=== PATIENT | female | born 1985 | race Caucasian/White ===

== ENCOUNTER 2016-10-31 02:44 | Emergency (ER) | payer SELFPAY ==
[~2016-10-31] VITALS: Ht 162.6 cm; Wt 72.6 kg
--- NOTE | 2016-10-31 02:49 | NUR ---
Placed in room 08 . Placed on gambling monitor, blood pressure machine and pulse oximeter. To gown for exam. Side rails up. Report given to PAGE Curry.
[2016-10-31 02:50] VITALS: BP_SYST 152
--- NOTE | 2016-10-31 02:50 | NUR ---
Patient AAO x4, sitting in bed, c/o Nausea and vomiting, FRIEDMAN 2/10, and anxiety following the ingestion of 9905-5002 mg of Depakote and 2500 mg of Keppra. Patient denies SI, states she took medication 24 hrs ago and is feeling unwell, states "I dont know how I took too much." No acute distress noted. Will continue to monitor.
--- NOTE | 2016-10-31 02:53 | NUR ---
Called Poison Control at [phone] and spoke with Don. Per recommendations: CMP, Depakote and Ammonia levels now and in 3 hrs, Tylenol and ASA levels, UDS. Dr. Lambert notified. Will continue to monitor patient.
--- NOTE | 2016-10-31 03:00 | NUR ---
ER at bedside examining patient.
[2016-10-31] MEDS ORDERED: NACL 0.9% 1,000 ML IV ONE (03:03)
[2016-10-31] MEDS ORDERED: ONDANSETRON HCL 4 MG/2 ML VIAL IVP ONE (03:15)
[2016-10-31 03:37] LABS: WHITE BLOOD COUNT (AUTO) 6.7 K/uL (4.8-10.8)
[2016-10-31 03:38] LABS: HEMATOCRIT 44.3 % (36-48); HEMOGLOBIN 14.6 g/dL (12.0-16.0); MEAN CORPUSCULAR HEMOGLOBIN 29 pg (27-31); MEAN CORPUSCULAR HGB CONC 33 % (32-36); MEAN CORPUSCULAR VOLUME 88 fL (79.0-98.0); NEUTROPHILS % (AUTO) 49.9 % (40.0-70.0); PLATELET COUNT (AUTO) 284 K/uL (130-430); RED BLOOD CELL COUNT(AUTO) 5.02 MIL/uL (4.2-6.2); RED CELL DISTRIBUTION WIDTH 13.4 % (9.0-15.0)
[2016-10-31 03:39] LABS: ANION GAP 3 (5-15); BASOPHILS % (AUTO) 0.5 % (0.0-2.0); CHLORIDE 104 mmol/L (98-107); CREATININE 0.81 mg/dL (0.55-1.30); EOSINOPHILS # (AUTO) 0.2 K/uL (0.0-0.4); EOSINOPHILS % (AUTO) 3.6 % (0.0-4.0); GLUCOSE 80 mg/dL (70-99); LYMPHOCYTES # (AUTO) 2.2 K/uL (1.0-5.5); LYMPHOCYTES % (AUTO) 33.3 % (20.5-51.5); MONOCYTES # (AUTO) 0.9 K/uL (0.0-1.0); MONOCYTES % (AUTO) 12.7 % (1.7-9.3); NEUTROPHILS # (AUTO) 3.4 K/uL (1.8-7.7); SODIUM SERUM 137 mmol/L (136-145); UREA NITROGEN, BLOOD 11 mg/dL (8-21)
--- NOTE | 2016-10-31 03:40 | NUR ---
# 20 gauge angiocath placed to R AC. Use of asceptic technique. Opsite placed over site. Blood return noted. Flushed with 10 cc of normal saline. No evidence of infiltration noted. Patient tolerated well.
[2016-10-31 03:41] LABS: GFR AFRICAN AMERICAN 108 mL/min (>90)
[2016-10-31 03:43] LABS: ALANINE AMINOTRANSFERASE 14 U/L (12-78); ALBUMIN 4.5 g/dL (3.4-4.8); AMYLASE 45 U/L (0-100); ASPARTATE AMINOTRANSFERASE 10 U/L (10-37); CREATINE KINASE, TOTAL 50 U/L (26-192); LIPASE 97 U/L (73-393); SALICYLATE 1 mg/dL (3-30); TOTAL BILIRUBIN 0.3 mg/dL (0.0-1.0); TOTAL PROTEIN, SERUM 7.6 g/dL (6.4-8.3)
[2016-10-31 03:45] LABS: ACETAMINOPHEN < 1 ug/mL (1-30); ALCOHOL, BLOOD < 3 mg/dL (<10)
[2016-10-31 03:52] LABS: PROTHROMBIN TIME 11.3 SECS (9.5-12.5)
[2016-10-31 04:41] LABS: BILIRUBIN,URINE NEGATIVE (NEGATIVE); BLOOD, URINE 1+ (NEGATIVE); CLARITY/URINE CLEAR (CLEAR); COLOR,URINE YELLOW (YELLOW); GLUCOSE,URINE NEGATIVE (NEGATIVE); KETONES,URINE NEGATIVE (NEGATIVE); LEUKOCYTE ESTERASE ,URINE NEGATIVE (NEGATIVE); NITRITE, URINE NEGATIVE (NEGATIVE); PROTEIN URINE NEGATIVE (NEGATIVE); UROBILINOGEN,URINE 0.2 (0.2-1.0)
--- NOTE | 2016-10-31 04:45 | NUR ---
Patient resting quietly. No acute distress noted. Vital signs within normal range.
[2016-10-31 04:53] LABS: BARBITURATE, URINE NEGATIVE (NEG <=200); BENZODIAZEPINE, URINE NEGATIVE (NEG <=150); CANNABINOID, URINE NEGATIVE (NEG <=50); COCAINE, URINE NEGATIVE (NEG <=150); METHAMPHETAMINES SCREEN,URINE NEGATIVE (NEG <=500); OPIATE, URINE NEGATIVE (NEG <=100); PHENCYCLIDINE SCREEN,URINE NEGATIVE (NEG <=25); UR TRICYCLIC ANTIDEPRESSANTS NEGATIVE (NEG <=300); URINE AMPHETAMINE NEGATIVE (NEG <=500); URINE METHADONE NEGATIVE (NEG <=200); URINE OXYCODONE SCREEN NEGATIVE (NEG <=100); URINE PROPOXYPHENE SCREEN NEGATIVE (NEG <=300)
[2016-10-31 04:56] LABS: RBC,URINE 0-3 /HPF (0-3)
[2016-10-31 04:57] LABS: BACTERIA,URINE FEW /HPF (None Seen); MUCUS,URINE None Seen /LPF (None Seen); WBC,URINE NONE SEEN /HPF (0-3)
[2016-10-31] MEDS ORDERED: ACETAMINOPHEN 325 MG TABLET PO ONE (05:30)
[2016-10-31 05:55] VITALS: BP_SYST 120
--- NOTE | 2016-10-31 05:55 | NUR ---
Patient given written and verbal discharge instructions and verbalizes understanding. ER MD discussed with patient the results and treatment provided. Patient in stable condition. ID arm band removed. IV catheter removed intact and dressing applied, no active bleeding. Rx of zofran given. Patient educated on pain management and to follow up with PMD. Pain Scale 0/10 . Opportunity for questions provided and answered.
== END 2016-10-31 05:55 | disposition home or self-care (01) ==
LOC: SED 02:44
DX: T42.6X1A Poisoning by other antiepileptic and sedative-hypnotic drugs, accidental (unintentional), initial encounter (principal); G40.909 Epilepsy, unspecified, not intractable, without status epilepticus; R11.2 Nausea with vomiting, unspecified; F43.10 Post-traumatic stress disorder, unspecified; Z91.018 Allergy to other foods; Y92.89 Other specified places as the place of occurrence of the external cause
CPT/HCPCS: 36415; 80053; 80307; 81000; 81025; 82150; 82542; 82550; 83690; 85025; 85610; 85730; 93005; 96361; 96374; 99285; G0480; G0481; G0482; J2405; J7030

== ENCOUNTER 2016-11-02 06:33 | Emergency (ER) | payer SELFPAY ==
[~2016-11-02] VITALS: Ht 162.6 cm; Wt 65.8 kg
[2016-11-02 06:43] VITALS: BP_SYST 149
[2016-11-02 07:09] LABS: BILIRUBIN,URINE NEGATIVE (NEGATIVE); CLARITY/URINE CLEAR (CLEAR); COLOR,URINE YELLOW (YELLOW); GLUCOSE,URINE NEGATIVE (NEGATIVE); KETONES,URINE NEGATIVE (NEGATIVE); LEUKOCYTE ESTERASE ,URINE NEGATIVE (NEGATIVE); NITRITE, URINE NEGATIVE (NEGATIVE); PROTEIN URINE NEGATIVE (NEGATIVE); UROBILINOGEN,URINE 0.2 (0.2-1.0)
[2016-11-02 07:10] LABS: BLOOD, URINE TRACE (NEGATIVE)
[2016-11-02 07:13] LABS: BARBITURATE, URINE NEGATIVE (NEG <=200); BENZODIAZEPINE, URINE NEGATIVE (NEG <=150); CANNABINOID, URINE NEGATIVE (NEG <=50); COCAINE, URINE NEGATIVE (NEG <=150); METHAMPHETAMINES SCREEN,URINE NEGATIVE (NEG <=500); OPIATE, URINE NEGATIVE (NEG <=100); PHENCYCLIDINE SCREEN,URINE NEGATIVE (NEG <=25); UR TRICYCLIC ANTIDEPRESSANTS NEGATIVE (NEG <=300); URINE AMPHETAMINE NEGATIVE (NEG <=500); URINE METHADONE NEGATIVE (NEG <=200); URINE OXYCODONE SCREEN NEGATIVE (NEG <=100); URINE PROPOXYPHENE SCREEN NEGATIVE (NEG <=300)
[2016-11-02] MEDS ORDERED: LORazepam 2 MG/ML VIAL (FOR ER USE) IVP ONE (07:15)
[2016-11-02] MEDS ORDERED: LORazepam 2 MG/ML VIAL (FOR ER USE) IM ONE (07:15)
[2016-11-02 07:17] LABS: BACTERIA,URINE None Seen /HPF (None Seen); RBC,URINE 0-3 /HPF (0-3); WBC,URINE 0-3 /HPF (0-3)
[2016-11-02 09:19] VITALS: BP_SYST 106
== END 2016-11-02 09:21 | disposition home or self-care (01) ==
LOC: SED 06:33
DX: F41.9 Anxiety disorder, unspecified (principal); F43.10 Post-traumatic stress disorder, unspecified; Z91.018 Allergy to other foods
CPT/HCPCS: 80307; 81000; 81025; 96374; 99284; J2060

== ENCOUNTER 2017-01-03 13:07 | Emergency (ER) | payer MEDICAID ==
[~2017-01-03] VITALS: Ht 160 cm; Wt 74.8 kg
[2017-01-03 13:23] VITALS: BP_SYST 121
[2017-01-03 14:28] VITALS: BP_SYST 121
== END 2017-01-03 14:28 | disposition home or self-care (01) ==
LOC: SED 13:07
DX: Z32.02 Encounter for pregnancy test, result negative (principal); R10.30 Lower abdominal pain, unspecified; F43.10 Post-traumatic stress disorder, unspecified
CPT/HCPCS: 36415; 84702-TC; 99283

== ENCOUNTER 2017-05-19 10:27 | Emergency (ER) | payer MEDICAID ==
[~2017-05-19] VITALS: Ht 162.6 cm; Wt 77.1 kg
[2017-05-19 10:30] VITALS: BP_SYST 123
--- NOTE | 2017-05-19 10:36 | NUR ---
Patient triaged and placed in waiting room. VSS and patient appears in no acute distress at this time. Accompanied by SELF, awaiting available bed, and MD notified of need for MSE.
--- NOTE | 2017-05-19 11:26 | NUR ---
Patient to ER bed 4 to gown for evaluation. Side rails up. Report given to Ford ABEL.
--- NOTE | 2017-05-19 11:45 | NUR ---
31year old female presented to ED with complaints of flu like symptoms x 10days; reports she is approximately 7weeks gestation; c/o 01/22 pain to groin area; awaiting for MD assess/eval
--- NOTE | 2017-05-19 11:48 | NUR ---
Dr. Lambert at bedside for assess/eval
--- NOTE | 2017-05-19 11:57 | NUR ---
urine sample collected and sent to lab
[2017-05-19] MEDS ORDERED: ALBUTEROL SULFATE 0.083% 2.5 MG/3 ML VIAL.NEB IH ONE (12:00)
[2017-05-19] MEDS ORDERED: IPRATROPIUM BROM 0.5 MG/2.5 ML VIAL.NEB (ATROVENT) IH ONE (12:00)
[2017-05-19 12:20] LABS: BASOPHILS # (AUTO) 0.1 K/uL (0.0-0.2); BASOPHILS % (AUTO) 0.7 % (0.0-2.0); EOSINOPHILS # (AUTO) 0.4 K/uL (0.0-0.4); EOSINOPHILS % (AUTO) 4.6 % (0.0-4.0); HEMATOCRIT 42.5 % (36-48); HEMOGLOBIN 14.1 g/dL (12.0-16.0); LYMPHOCYTES # (AUTO) 1.6 K/uL (1.0-5.5); LYMPHOCYTES % (AUTO) 18.6 % (20.5-51.5); MEAN CORPUSCULAR HEMOGLOBIN 29 pg (27-31); MEAN CORPUSCULAR HGB CONC 33 % (32-36); MEAN CORPUSCULAR VOLUME 87 fL (79.0-98.0); MONOCYTES # (AUTO) 0.6 K/uL (0.0-1.0); MONOCYTES % (AUTO) 6.5 % (1.7-9.3); NEUTROPHILS # (AUTO) 5.9 K/uL (1.8-7.7); NEUTROPHILS % (AUTO) 69.6 % (40.0-70.0); PLATELET COUNT (AUTO) 394 K/uL (130-430); RED BLOOD CELL COUNT(AUTO) 4.89 MIL/uL (4.2-6.2); RED CELL DISTRIBUTION WIDTH 12.9 % (9.0-15.0); WHITE BLOOD COUNT (AUTO) 8.6 K/uL (4.8-10.8)
[2017-05-19 12:26] LABS: CALCIUM 9.6 mg/dL (8.4-11.0); CREATININE 0.61 mg/dL (0.55-1.30)
[2017-05-19 12:33] LABS: BILIRUBIN,URINE NEGATIVE (NEGATIVE); CLARITY/URINE SLIGHTLY HAZY (CLEAR); COLOR,URINE YELLOW (YELLOW); GLUCOSE,URINE NEGATIVE (NEGATIVE); KETONES,URINE TRACE (NEGATIVE); PROTEIN URINE NEGATIVE (NEGATIVE)
[2017-05-19 12:34] LABS: ALBUMIN 4.3 g/dL (3.4-4.8); TOTAL BILIRUBIN 0.2 mg/dL (0.0-1.0)
[2017-05-19 12:34] LABS: BLOOD, URINE NEGATIVE (NEGATIVE); LEUKOCYTE ESTERASE ,URINE NEGATIVE (NEGATIVE); NITRITE, URINE NEGATIVE (NEGATIVE); UROBILINOGEN,URINE 0.2 (0.2-1.0)
--- NOTE | 2017-05-19 13:03 | NUR ---
rcv report from PAGE Youngblood; pt resting comfortably in bed; request PO food but states continues with nausea; will make MD aware
[2017-05-19] MEDS ORDERED: ACETAMINOPHEN 325 MG TABLET PO ONE (14:00)
[2017-05-19 14:10] VITALS: BP_SYST 132
--- NOTE | 2017-05-19 14:14 | NUR ---
Patient given written and verbal discharge instructions and verbalizes understanding. ER MD discussed with patient the results and treatment provided. Patient in stable condition. ID arm band removed. Rx of Afrin, Tylenol, and Zofran given. Patient educated on pain management and to follow up with PMD within 2 to 3days. Pain Scale 5/10; tolerable and no other interventions required at this time; pt and MD agreeable to discharge home. Opportunity for questions provided and answered.
== END 2017-05-19 14:14 | disposition home or self-care (01) ==
LOC: SED 10:27
DX: O98.511 Other viral diseases complicating pregnancy, first trimester (principal); O21.0 Mild hyperemesis gravidarum; J00 Acute nasopharyngitis [common cold]; B34.9 Viral infection, unspecified; F43.10 Post-traumatic stress disorder, unspecified; Z3A.01 Less than 8 weeks gestation of pregnancy; Z88.8 Allergy status to other drugs, medicaments and biological substances; Z91.018 Allergy to other foods
CPT/HCPCS: 36415; 80053; 81003; 85025; 86710; 94640; 99284

== ENCOUNTER 2017-06-07 17:16 | Emergency (ER) | payer MEDICAID ==
[~2017-06-07] VITALS: Ht 162.6 cm; Wt 77.1 kg
--- NOTE | 2017-06-07 17:30 | NUR ---
Pt placed in bed 8
--- NOTE | 2017-06-07 17:30 | NUR ---
Pt signed consent for x-ray examination during . Dr. Landon at bedside to inform pt of medical benefits and risks.
--- NOTE | 2017-06-07 17:36 | NUR ---
Dr. Landon at bedside for evaluation
[2017-06-07 17:40] VITALS: BP_SYST 127
[2017-06-07] MEDS ORDERED: NACL 0.9% 1,000 ML IV SCH (17:42)
[2017-06-07] MEDS ORDERED: ACETAMINOPHEN 325 MG TABLET PO ONE (17:45)
[2017-06-07] MEDS ORDERED: cefTRIAXone 1 GM IVPB PREMIX 50 ML IV ONE (17:45)
--- NOTE | 2017-06-07 17:50 | NUR ---
# 20 gauge angiocath placed to LAC. Use of asceptic technique. Opsite placed over site. Blood return noted. Blood for lab drawn from site. Flushed with 10 cc of normal saline. No evidence of infiltration noted. Patient tolerated well.
[2017-06-07 18:17] LABS: BASOPHILS % (AUTO) 0.7 % (0.0-2.0); EOSINOPHILS # (AUTO) 0.2 K/uL (0.0-0.4); EOSINOPHILS % (AUTO) 2.2 % (0.0-4.0); HEMATOCRIT 39.5 % (36-48); LYMPHOCYTES # (AUTO) 0.8 K/uL (1.0-5.5); LYMPHOCYTES % (AUTO) 12.2 % (20.5-51.5); MEAN CORPUSCULAR HEMOGLOBIN 29 pg (27-31); MEAN CORPUSCULAR HGB CONC 33 % (32-36); MEAN CORPUSCULAR VOLUME 88 fL (79.0-98.0); MONOCYTES # (AUTO) 0.7 K/uL (0.0-1.0); MONOCYTES % (AUTO) 9.9 % (1.7-9.3); NEUTROPHILS # (AUTO) 5.2 K/uL (1.8-7.7); PLATELET COUNT (AUTO) 279 K/uL (130-430); RED BLOOD CELL COUNT(AUTO) 4.51 MIL/uL (4.2-6.2); RED CELL DISTRIBUTION WIDTH 13.4 % (9.0-15.0); WHITE BLOOD COUNT (AUTO) 6.9 K/uL (4.8-10.8)
[2017-06-07 18:27] LABS: CALCIUM 9.1 mg/dL (8.4-11.0); CREATININE 0.61 mg/dL (0.55-1.30); POTASSIUM 3.4 mmol/L (3.5-5.1)
[2017-06-07 18:29] LABS: PROTHROMBIN TIME 9.9 SECS (9.5-12.5)
[2017-06-07 18:31] LABS: ALBUMIN 3.5 g/dL (3.4-4.8); TOTAL BILIRUBIN 0.2 mg/dL (0.0-1.0)
[2017-06-07] MEDS ORDERED: OSELTAMIVIR PHOSPHATE 75 MG CAPSULE PO ONE (18:45)
[2017-06-07 19:30] VITALS: BP_SYST 127
--- NOTE | 2017-06-07 19:30 | NUR ---
Patient given written and verbal discharge instructions and verbalizes understanding. ER MD discussed with patient the results and treatment provided. Patient in stable condition. ID arm band removed. IV catheter removed intact and dressing applied, no active bleeding. Rx of Diclegis, Tylenol, and Tamiflu given. Patient educated on pain management and to follow up with PMD. Pain Scale 2/10. Opportunity for questions provided and answered. Medication side effect fact sheet provided.
== END 2017-06-07 19:30 | disposition home or self-care (01) ==
LOC: SED 17:16
DX: O26.891 Other specified pregnancy related conditions, first trimester (principal); J11.1 Influenza due to unidentified influenza virus with other respiratory manifestations; F43.10 Post-traumatic stress disorder, unspecified; Z3A.10 10 weeks gestation of pregnancy; Z91.018 Allergy to other foods; Z91.048 Other nonmedicinal substance allergy status
CPT/HCPCS: 36415; 71045; 80053; 83605; 83690; 84484; 85025; 85610; 85730; 86710; 87040; 93005; 96365; 99285; G9035; J0696; J7030

== ENCOUNTER 2017-06-10 13:48 | Emergency (ER) | payer MEDICAID ==
[~2017-06-10] VITALS: Ht 162.6 cm; Wt 77.1 kg
[2017-06-10 13:48] VITALS: BP_SYST 144
[2017-06-10] MEDS ORDERED: ONDANSETRON 4 MG ODT TAB PO ONE (14:15)
[2017-06-10 14:42] LABS: BILIRUBIN,URINE NEGATIVE (NEGATIVE); BLOOD, URINE NEGATIVE (NEGATIVE); CLARITY/URINE CLOUDY (CLEAR); COLOR,URINE YELLOW (YELLOW); GLUCOSE,URINE NEGATIVE (NEGATIVE); KETONES,URINE NEGATIVE (NEGATIVE); LEUKOCYTE ESTERASE ,URINE NEGATIVE (NEGATIVE); NITRITE, URINE NEGATIVE (NEGATIVE); PH,URINE 6.5 (5.0-8.0); PROTEIN URINE 1+ (NEGATIVE); UROBILINOGEN,URINE 0.2 (0.2-1.0)
[2017-06-10 14:54] LABS: BACTERIA,URINE FEW /HPF (None Seen); RBC,URINE 0-3 /HPF (0-3); WBC,URINE 0-3 /HPF (0-3)
[2017-06-10] MEDS ORDERED: ONDANSETRON 4 MG ODT TAB ONE (16:49)
[2017-06-10 17:25] VITALS: BP_SYST 115
== END 2017-06-10 18:00 | disposition home or self-care (01) ==
LOC: SED 13:48
DX: O21.9 Vomiting of pregnancy, unspecified (principal); J11.1 Influenza due to unidentified influenza virus with other respiratory manifestations; F43.10 Post-traumatic stress disorder, unspecified; Z3A.10 10 weeks gestation of pregnancy; Z91.018 Allergy to other foods
CPT/HCPCS: 36415; 81000; 81025; 86710; 99284; Q0162

== ENCOUNTER 2017-09-10 20:20 | Observation (INO) | payer MEDICAID | END 2017-09-10 22:30 | disposition home or self-care (01) | LOC: SPU 20:20 | PROVIDERS: ADMIT Obstetrics & Gynecology; ATTEND Obstetrics & Gynecology | DX: O21.2 Late vomiting of pregnancy (principal); O26.892 Other specified pregnancy related conditions, second trimester; R42 Dizziness and giddiness; R53.1 Weakness; Z3A.23 23 weeks gestation of pregnancy | CPT/HCPCS: G0378 ==

== ENCOUNTER 2017-11-03 14:36 | Emergency (ER) | payer MEDICAID ==
[~2017-11-03] VITALS: Ht 165.1 cm; Wt 87.5 kg
[2017-11-03 14:45] VITALS: BP_SYST 125
[2017-11-03] MEDS ORDERED: FAMOTIDINE 20 MG TABLET PO ONE (16:15)
[2017-11-03] MEDS ORDERED: DIPHENHYDRAMINE HCL 50 MG CAPSULE PO ONE (16:15)
[2017-11-03 17:01] VITALS: BP_SYST 120
== END 2017-11-03 17:01 | disposition home or self-care (01) ==
LOC: SED 14:36
DX: O26.86 Pruritic urticarial papules and plaques of pregnancy (PUPPP) (principal); F43.10 Post-traumatic stress disorder, unspecified; Z91.018 Allergy to other foods; Z3A.31 31 weeks gestation of pregnancy
CPT/HCPCS: 99283; Q0163

== ENCOUNTER 2020-12-25 16:49 | Emergency (ER) | payer OTHER, SELFPAY ==
--- NOTE | 2020-12-25 17:24 | NUR ---
LOOKED FOR PATIENT IN THE WAITING ROOM, TENT, AND IN FRONT OF THE LOBBY. PT IS NOT RESPONDING
[2020-12-26] MEDS ORDERED: CORTEARS BOTH EARS (13:35)
[2020-12-26] MEDS ORDERED: TRAM50TA PO (13:39)
== END 2020-12-25 17:56 | disposition left against medical advice (07) ==
LOC: SED 16:49
DX: R50.9 Fever, unspecified (principal); R05 Cough; Z53.21 Procedure and treatment not carried out due to patient leaving prior to being seen by health care provider

== ENCOUNTER 2020-12-26 12:40 | Emergency (ER) | payer OTHER, SELFPAY ==
[~2020-12-26] VITALS: Ht 170.2 cm; Wt 68.0 kg
[2020-12-26 12:40] VITALS: BP_SYST 111
--- NOTE | 2020-12-26 13:20 | NUR ---
RECEIVED AND IN ROOM, PT CALM, ALERT, NO DISTRESS. SKIN WARM AND DRY. BIB FAMILY
[2020-12-26 13:26] VITALS: BP_SYST 118
--- NOTE | 2020-12-26 13:26 | NUR ---
DR ROMAN IN TO ASSESS
[2020-12-26] MEDS ORDERED: CORTEARS BOTH EARS (13:35)
[2020-12-26] MEDS ORDERED: TRAM50TA PO (13:39)
--- NOTE | 2020-12-26 13:40 | NUR ---
RESP UNLABORED, SKIN WARM AND DRY. SKIN WARM AND DRY
--- NOTE | 2020-12-26 14:16 | NUR ---
Patient given written and verbal discharge instructions and verbalizes understanding. ER MD discussed with patient the results and treatment provided. Patient in stable condition. ID arm band removed. Patient educated on pain management and to follow up with PMD. Pain Scale Opportunity for questions provided and answered.
== END 2020-12-26 14:08 | disposition home or self-care (01) ==
LOC: SED 12:40
DX: H60.93 Unspecified otitis externa, bilateral (principal); Z79.899 Other long term (current) drug therapy; Z91.018 Allergy to other foods; Z20.822 Contact with and (suspected) exposure to COVID-19
CPT/HCPCS: 99283; U0003; C9803